=== PATIENT | male | born 1960 | race Caucasian/White ===

== ENCOUNTER 2022-06-21 09:09 | Emergency (ER) | payer MEDICARE, OTHER ==
[~2022-06-21] VITALS: Ht 188 cm; Wt 81.7 kg
[2022-06-21] MEDS ORDERED: LIDO700A20 TOP (10:02)
== END 2022-06-21 10:04 | disposition home or self-care (01) ==
LOC: ER 09:09
DX: M54.10 Radiculopathy, site unspecified (principal); M25.559 Pain in unspecified hip; F17.200 Nicotine dependence, unspecified, uncomplicated; Z79.899 Other long term (current) drug therapy
CPT/HCPCS: 99281

== ENCOUNTER 2025-05-19 10:47 | Emergency (ER) | payer MEDICARE, OTHER ==
[~2025-05-19] VITALS: Ht 188 cm; Wt 77.1 kg
[~2025-05-19 10:47] MED LIST: BENZ100A PO; LIDO700A20 TOP; ONDA4ODT MM
[2025-05-19 10:57] VITALS: BP 144/118
[2025-05-19 11:27] LABS: Source, Urine Clean Catch
[2025-05-19 11:49] LABS: Bilirubin, Urine Neg (Neg); Glucose Qualitative, Urine 2+ (Neg); Ketones, Urine Neg (Neg); Leukocyte Esterase, Urine 3+ (Neg); Protein, Urine 3+ (Neg); Specific Gravity, Urine 1.015 (1.003-1.022); Urobilinogen, Urine NORM (Normal)
[2025-05-19 11:51] LABS: Color, Urine Pale Yellow (P-Yellow)
[2025-05-19 11:56] LABS: White Blood Cells, Urine TNTC /hpf (0-5)
[2025-05-19] MEDS ORDERED: BACTRIM DS TAB1 EAC1 PO ×2 (12:23→13:29)
[2025-05-19] MEDS ORDERED: Trimethoprim/Sulfamethoxazole DS Tab PO ONE (12:25)
== END 2025-05-19 12:29 | disposition home or self-care (01) ==
LOC: ER 10:47
PROVIDERS: Student in an Organized Health Care Education/Training Program
DX: N30.00 Acute cystitis without hematuria (principal); F17.200 Nicotine dependence, unspecified, uncomplicated; Z87.440 Personal history of urinary (tract) infections
CPT/HCPCS: 81001; 87077; 87086; 87186; 99283; A9270